=== PATIENT | male | born 1980 | race Caucasian/White ===

== ENCOUNTER 2023-10-29 16:45 | Outpatient (REF) | payer SELFPAY ==
[2023-10-31 14:59] LABS: Chlamydia Result Negative (Negative); GC Result Negative (Negative)
== END 2023-10-29 16:46 | disposition home or self-care (01) ==
LOC: NCHCN 16:45
PROVIDERS: PCP Nurse Practitioner Family; Visit Provider Family Medicine
DX: Z11.59 Encounter for screening for other viral diseases (principal)
CPT/HCPCS: 87491; 87591

== ENCOUNTER 2023-12-18 12:47 | Outpatient (REF) | payer SELFPAY ==
[2023-12-21 10:40] LABS: Hepatitis C Ab w Rflx HCV PCR Negative (Negative)
[2023-12-21 10:48] LABS: HIV-1/2 Ag & Ab Screen Negative (Negative)
[2023-12-21 11:20] LABS: Syphilis Serology (RPR) Negative (Negative)
== END 2023-12-18 12:48 | disposition home or self-care (01) ==
LOC: NCHCN 12:47
PROVIDERS: PCP Nurse Practitioner Family; Referring Provider Family Medicine; Visit Provider Family Medicine
DX: Z11.3 Encounter for screening for infections with a predominantly sexual mode of transmission (principal); Z11.4 Encounter for screening for human immunodeficiency virus [HIV]; Z11.59 Encounter for screening for other viral diseases
CPT/HCPCS: 86803; 87389; 86592